=== PATIENT | female | born 1985 | race Caucasian/White ===

== ENCOUNTER 2020-09-04 15:48 | Outpatient (REF) | payer OTHER, SELFPAY ==
[2020-09-04 17:40] LABS: HCG Quantitative < 2 mIU/mL
== END 2020-09-04 15:49 | disposition home or self-care (01) ==
LOC: HO.LAB 15:48
PROVIDERS: PCP Internal Medicine; Visit Provider Advanced Practice Midwife
DX: O20.0 Threatened abortion (principal)
CPT/HCPCS: 84702

== ENCOUNTER 2020-09-05 12:04 | Outpatient (REF) | payer OTHER, SELFPAY ==
[2020-09-06 08:57] LABS: CT PCR NOT DETECTED (Not Detect.); NG PCR NOT DETECTED (Not Detect.)
[2020-09-06 22:41] LABS: CA-125 18 U/mL (<35)
== END 2020-09-05 12:05 | disposition home or self-care (01) ==
LOC: HO.LAB 12:04
PROVIDERS: Advanced Practice Midwife; PCP Internal Medicine; Visit Provider Obstetrics & Gynecology
DX: Z11.3 Encounter for screening for infections with a predominantly sexual mode of transmission (principal); O03.9 Complete or unspecified spontaneous abortion without complication; N83.291 Other ovarian cyst, right side
CPT/HCPCS: 86304; 87491; 87591; 99213

== ENCOUNTER 2020-09-06 11:35 | Outpatient (REF) | payer OTHER, SELFPAY | END 2020-09-06 11:36 | disposition home or self-care (01) | LOC: HO.LNP 11:35 | PROVIDERS: Visit Provider Obstetrics & Gynecology | DX: Z13.89 Encounter for screening for other disorder (principal) ==

== ENCOUNTER 2020-09-25 19:09 | Emergency (ER) | payer OTHER, SELFPAY ==
[2020-09-25 19:49] VITALS: BP 133/83; PULSE 89; RESP 16; TEMP 36.8; O2SAT 100; BMI 28.5
[2020-09-25 22:00] VITALS: BP 116/74; PULSE 104; RESP 15; O2SAT 99
--- NOTE | 2020-09-25 22:15 | ED_ITS ---
HPI - Abdominal Pain General Chief Complaint: Abdominal Pain Stated Complaint: Abd pain Time Seen by Provider: 09/25/20 21:58 Source: patient Mode of arrival: ambulatory Limitations: no limitations History of Present Illness HPI narrative: patient's history of ovarian cyst bilateral noticed pain in the right mid abdomen for last 4 days with no relation to movement or urination no nausea no vomiting no diarrhea no fever Related Data Home Medications Medication Instructions Recorded Confirmed vits [id number] fum 1 tab PO DAILY 09/05/20 27 mg iron-folic acid 800 mcg tablet Previous Rx's Medication Instructions Recorded dicyclomine 20 mg PO TID PRN #14 tab 09/25/20 Allergies Allergy/AdvReac Type Severity Reaction Status Date / Time latex [LATEX] Allergy Mild SWELLING Unverified 08/08/20 15:54 Review of Systems Review of Systems REVIEW OF SYSTEMS: Pertinent positives and negatives are stated above in the history. GEN: no fevers, chills, fatigue HEENT: no nasal congestion, sore throat, ear pain NEURO: no headache, dizziness, focal weakness PULM: no cough, shortness of breath CV: no chest pain, palpitations, LE edema ABD: no nausea, vomiting, diarrhea : no dysuria, urgency, frequency SKIN: no rash ROS otherwise negative x 10 Physical Exam Vital Signs: Vital Signs: Vital Signs Temp Pulse Resp BP Pulse Ox 09/25/20 22:00 104 H 15 116/74 99 09/25/20 19:49 98.3 F 89 16 133/83 100 Body Mass Index 28.5 Appearance: Alert. Oriented X3. No acute distress. Eyes: Pupils equal, round and reactive to light. ENT: Pharynx normal. Neck: Normal inspection. Neck supple. CVS: Normal heart rate and rhythm. Pulses normal. Respiratory: No respiratory distress. Breath sounds normal. Abdomen: Soft and mild tenderness right mid abdomen no rebound tenderness or guarding no CVA tenderness bowel sounds are present no mass palpable Skin: Skin warm and dry. Normal skin color. Normal skin turgor. Extremities: No lower extremity edema. Good range of movement Neuro: Oriented X 3. No motor deficit. No sensory deficit. Course Course Course Narrative: patient with nonspecific mild pain and abdomen without any nausea / vomiting likely nonspecific will discharge patient home patient urine is normal no blood in the urine or infection MDM - Abdominal Pain Medical Records Attestation: I reviewed the patient's medical records. Lab Data Attestation: I reviewed the patient's lab results. Labs: Lab Results 09/25/20 Range/Units 22:16 Urine Color YELLOW Urine Appearance CLEAR Urine pH 7.5 (5.0-8.0) Ur Specific [place] 1.020 (1.005-1.025) Urine Protein NEG (NEG-TRACE) MG/DL Urine Glucose (UA) NEG (NEG) MG/DL Urine Ketones NEG (NEG) MG/DL Urine Blood NEG (NEG) Urine Nitrite NEG (NEG) Ur Leukocyte Esterase NEG (NEG) Urine Test NEGATIVE (NEGATIVE) Discharge Plan Discharge Clinical Impression: Abdominal pain Qualifiers: Abdominal location: upper abdomen, unspecified Qualified Code(s): R10.10 - Upper abdominal pain, unspecified Patient Disposition: Home, Self-Care Instructions: Abdominal Pain (ED) Additional Instructions: drink plenty of fluids, dicyclomine as advised or pain. Report to the ER if pain gets worse/ vomiting /fever Prescriptions: New dicyclomine 20 mg tablet 20 mg PO TID PRN (Reason: abdominal pain) Qty: 14 RF: 0 No Action Vitamin 27 mg iron- 800 mcg tablet 1 tab PO DAILY RF: 0 Interventions: ED Discharge Assessment Last Done: 09/25/20 22:59 Discharge Date/Time: 09/25/20 23:01 [facility] Past Medical History Medical History Anxiety Constipation Depression Headache Ovarian cyst Family History Family History Father No problems noted. Mother Bipolar 1 disorder Son Depression Anxiety Maternal Grandmother Diabetes Maternal Grandfather Diabetes Paternal Grandfather Prostate cancer Colon cancer Paternal Uncle Prostate cancer Social History Social History Alcohol intake: never Smoking Status: Never smoker Advance Directives: No Sexual orientation: Straight/Heterosexual Gender identity: female
[2020-09-25 22:29] LABS: Appearance Urine CLEAR; Color Urine YELLOW; Glucose Urine UA NEG (NEG); Leukocyte Esterase Urine NEG (NEG); Nitrite Urine NEG (NEG); PH 7.5 (5.0-8.0); Urine Blood NEG (NEG); Urine Ketones NEG (NEG); Urine Protein NEG (NEG-TRACE)
[2020-09-25 22:33] LABS: UPreg QC Valid YES; Urine Pregnancy NEGATIVE (NEGATIVE)
== END 2020-09-25 23:01 | disposition home or self-care (01) ==
PROVIDERS: Emergency Provider Internal Medicine
DX: R10.10 Upper abdominal pain, unspecified (principal)
CPT/HCPCS: 81003; 81025; 99283; 99284

== ENCOUNTER 2020-10-01 15:09 | Outpatient (REF) | payer OTHER, SELFPAY ==
[2020-10-01 18:18] LABS: HCG Quantitative 95 mIU/mL
== END 2020-10-01 15:10 | disposition home or self-care (01) ==
LOC: HO.LAB 15:09
PROVIDERS: Absent Provider Obstetrics & Gynecology; Visit Provider Obstetrics & Gynecology
DX: O20.0 Threatened abortion (principal)
CPT/HCPCS: 84702; 99211

== ENCOUNTER 2020-10-03 15:36 | Outpatient (REF) | payer OTHER, SELFPAY ==
[2020-10-03 17:14] LABS: HCG Quantitative 337 mIU/mL
== END 2020-10-03 15:37 | disposition home or self-care (01) ==
LOC: HO.LAB 15:36
PROVIDERS: Visit Provider Obstetrics & Gynecology
DX: O20.0 Threatened abortion (principal)
CPT/HCPCS: 84702

== ENCOUNTER 2020-10-11 13:14 | Outpatient (REF) | payer OTHER, SELFPAY ==
--- NOTE | 2020-10-11 13:26 | US_ITS ---
EXAMINATION: OBSTETRICAL ULTRASOUND, FIRST TRIMESTER HISTORY: 34-year-old with on certain LMP Amenorrhea Recent first trimester miscarriages x2 LMP: Unknown COMPARISON: 08/19/2020 TECHNIQUE: Real time transabdominal imaging with color and M-mode Doppler. FINDINGS: An empty intrauterine gestational sac with a mean sac diameter of 0.76cm, consistent with 5 weeks 3 days of gestation is seen. A yoke sac is noted but no embryonic pole noted. A small endometrial lining cyst (0.2 x 0.2 x 0.3 cm) seen. Left ovary contains a known clear cyst measuring 6.6 x 4.2 x 5.3 cm. Right ovary measured 3.9 x 2.1 cm with a corpus luteal cyst measuring 2.1 x 2.1 x 2.1 cm. No free fluid in the cul-de-sac. GESTATIONAL AGE: 1. GA from LMP: N/A wks 2. GA from AUA: 5.3 wks ESTIMATED DATE OF DELIVERY: 1. STERLING from LMP: N/A 2. STERLING from AUA: 06/10/2021 US/US OB <= 14 weeks fetus IMPRESSION: An intrauterine gestational sac consistent with 5.3 weeks of gestation Normal-appearing yolk sac without an embryonic pole which can be consistent with the GA. An anechoic left ovarian cyst Discussion: I reviewed today's ultrasound findings and gave her reassurance. Although no embryonic pole is not visible, this can be consistent with the gestational age of less than 6 weeks. She denies vaginal bleeding or pelvic pain. Serial serum beta-hCG titer is recommended. A follow-up ultrasound has been scheduled in 2 weeks. Thank you very much for this referral. Majority of the visit was spent counseling and coordinating her care. Face to face time: 20 min.
== END 2020-10-11 13:15 | disposition home or self-care (01) ==
LOC: HO.US 13:14
PROVIDERS: PCP Internal Medicine; Visit Provider Obstetrics & Gynecology
DX: O20.0 Threatened abortion (principal)
CPT/HCPCS: 76801; 76817

== ENCOUNTER 2020-10-25 13:51 | Outpatient (REF) | payer OTHER, SELFPAY ==
--- NOTE | 2020-10-25 13:57 | US_ITS ---
EXAMINATION: OBSTETRICAL ULTRASOUND, FIRST TRIMESTER HISTORY: 35-year-old with uncertain LMP Viability LMP: Unknown COMPARISON: 10/11/2020 TECHNIQUE: Real time transabdominal imaging with color and M-mode Doppler. FINDINGS: A single, live IUP CRL of 1.0 mm c/w 7.1wks is noted. Heart Rate: 135 beats per minute. Right ovary contains a corpus luteal cyst measuring 2.2 x 2.5 x 2.3 cm. Compared to prior exam, this represents appropriate progression. The ovary itself measures 4.3 x 2.7 x 2.9 cm which is within normal range. Left ovary measures 6.5 x 5.3 x 6.1 cm. It contains a clear anechoic cyst measuring 6.5 x 5.2 x 4.9 cm. Compared to prior exam this is stable. GESTATIONAL AGE: 1. GA from LMP: 7.3 wks 2. GA from AUA: 7.1 wks ESTIMATED DATE OF DELIVERY: 1. STERLING from LMP: 06/10/2021 2. STERLING from AUA: 06/12/2021 US/US OB <= 14 weeks fetus IMPRESSION: 1. A single live IUP 2. CRL consistent with 7 weeks 1 day. This is in accordance with the her gestational age by ultrasound on 10/11/2020 at which time only a gestational sac was noted. The best STERLING is 06/10/2021. 3. The right ovary contains a corpus luteal cyst which is regressing. The left ovary contains a benign cyst at the is stable. Discussion: I reviewed today's ultrasound findings and informed her that her best STERLING seems to be 06/10/2021 based on the ultrasound on 10/11/2020. I reassured her that the cyst on the right ovary is a corpus luteal cyst and there is to be regressing. The anechoic cyst in the left ovary is stable and has benign appearance. We should follow-up at approximately every 6 weeks. A follow-up ultrasound at approximately 12 weeks for NT evaluation is recommended (not scheduled). Thank you very much for this referral. Majority of the visit was spent counseling and coordinating her care. Face to face time: 20 min.
[2020-10-25 15:35] LABS: Hematocrit 35.8 % (37-47); Hemoglobin 12.1 g/dl (12.0-16.0); Mean Corpuscular HGB Conc 33.8 g/dl (31.0-35.0); Mean Corpuscular Hemoglobin 31.6 pg (27.0-33.0); Mean Corpuscular Volume 93.5 fL (80-98); Mean Platelet Volume 10.6 fL (9.4-12.3); Platelet Count 230 X10*3/uL (160-400); Red Blood Count 3.83 X10*6/uL (4.20-5.50); Red Cell Distribution Width 11.7 % (11.0-16.0); White Blood Count 6.8 X10*3/uL (4.8-10.8)
== END 2020-10-25 13:52 | disposition home or self-care (01) ==
LOC: HO.US 13:51
PROVIDERS: Absent Provider Advanced Practice Midwife; PCP Internal Medicine; Visit Provider Obstetrics & Gynecology
DX: O20.0 Threatened abortion (principal); Z3A.14 14 weeks gestation of pregnancy
CPT/HCPCS: 36415; 76801; 84702; 85027

== ENCOUNTER → 2020-11-08 10:08 | Outpatient (BNVA) | payer OTHER, SELFPAY | PROVIDERS: PCP Internal Medicine; Visit Provider Advanced Practice Midwife | DX: Z34.90 Encounter for supervision of normal pregnancy, unspecified, unspecified trimester (principal) | CPT/HCPCS: 99212 ==

== ENCOUNTER 2020-11-26 10:57 | Outpatient (REF) | payer OTHER, SELFPAY ==
[2020-11-27 19:22] LABS: C. trachomatis RNA TMA NOT DETECTED (NOT DETECTED); N. gonorrhoeae RNA TMA NOT DETECTED (NOT DETECTED)
[2020-11-28 23:57] LABS: HPV mRNA E6/E7 rflx Not Detected (Not Detected)
== END 2020-11-26 10:58 | disposition home or self-care (01) ==
LOC: HO.LAB 10:57
PROVIDERS: PCP Internal Medicine; Visit Provider Advanced Practice Midwife
DX: Z34.90 Encounter for supervision of normal pregnancy, unspecified, unspecified trimester (principal)
CPT/HCPCS: 36415; 81003; 87491; 87591; 87624; 88142; 99212

== ENCOUNTER 2020-11-29 14:10 | Outpatient (REF) | payer OTHER, SELFPAY ==
--- NOTE | 2020-11-29 14:22 | US_ITS ---
EXAMINATION: OBSTETRICAL ULTRASOUND, FIRST TRIMESTER HISTORY: 35-year-old at 12.3 weeks of gestation NT screening COMPARISON: 10/25/2020 TECHNIQUE: Real time transabdominal imaging with color and M-mode Doppler. FINDINGS: A single, live IUP CRL of 55 mm c/w 12.1wks is noted. Heart Rate: 156 beats per minute. Normal yolk sac seen. NT was 1.4.mm. NB Present The embryo appears sonographically wnl for this GA. A 7 cm ovarian cyst was noted in left ovary. There is a benign appearance. Compared to prior exam, this cyst appears stable. GESTATIONAL AGE: 1. Established GA: 12.3 wks 2. GA from AUA: 12.1 wks ESTIMATED DATE OF DELIVERY: 1. Established STERLING: 06/10/2021 2. STERLING from AUA: 06/12/2021 US/US OB 1T nuc measure IMPRESSION: A single live IUP Size equals dates NT of 1.4 mm An anechoic left ovarian cyst. Minimal change compared to prior exam MFM Consultation: I reviewed the ultrasound findings along with significance of NT measurement. The NT of less than 3mm is generally reassuring. However, the sensitivity for T21 detection is only 60%. I reviewed the availability of serum aneuploidy screening which includes cell-free DNA and placental protein based tests. I discussed the sensitivity, false-positive rate, and other limitations associated with each test. I also reviewed the availability of invasive diagnostic tests that are associated small but definite risk of miscarriage. We also reviewed the differences between screening tests and diagnostic tests. After our discussion, she opted for the First trimester screening that is based on cell-free DNA or non-invasive testing (NIPT). The result will be faxed to your office in approximately 7 days. A follow up at 18 weeks for survey has been scheduled. Thank you very much for this referral. Total time 31 min (3, 17, 11).
[2020-11-29 15:59] LABS: MANUAL DIFF FLAG NO
[2020-11-29 16:08] LABS: Basophils Percent Auto 0.1 % (0-2); Eosinophils Absolute Auto 0.1 X10*3/uL (0.0-0.4); Eosinophils Percent Auto 0.8 % (0-4); Hematocrit 34.3 % (37-47); Hemoglobin 11.9 g/dl (12.0-16.0); Imm Gran Abs Auto 0.03 X10*3/uL (0.00-0.03); Imm Gran Pct Auto 0.4 % (0.0-0.4); Lymphocytes Absolute Auto 1.1 X10*3/uL (1.2-4.9); Lymphocytes Percent Auto 14.3 % (20-40); Mean Corpuscular HGB Conc 34.7 g/dl (31.0-35.0); Mean Corpuscular Hemoglobin 31.6 pg (27.0-33.0); Mean Corpuscular Volume 91.2 fL (80-98); Mean Platelet Volume 10.9 fL (9.4-12.3); Monocytes Absolute Auto 0.4 X10*3/uL (0.1-1.2); Monocytes Percent Auto 5.6 % (2-11); Neutrophils Absolute Auto 5.8 X10*3/uL (2.0-8.3); Neutrophils Percent Auto 78.8 % (45-73); Platelet Count 237 X10*3/uL (160-400); Red Blood Count 3.76 X10*6/uL (4.20-5.50); Red Cell Distribution Width 11.8 % (11.0-16.0); White Blood Count 7.3 X10*3/uL (4.8-10.8)
[2020-11-29 16:38] LABS: Syphilis Screen Nonreactive (Nonreactive)
[2020-11-29 16:48] LABS: Amphetamine Screen Urine Not Detected (Not Detect); Barbiturates, Urine Not Detected (Not Detect); Benzodiazepines Screen Urine Not Detected (Not Detect); Cannabinoid Screen Urine Not Detected (Not Detect); Cocaine Screen Urine Not Detected (Not Detect); Opiate Screen Urine Not Detected (Not Detect); Phencyclidine Screen Urine Not Detected (Not Detect)
[2020-12-01 01:52] LABS: Rubella IgG Antibody 1.95 Index
[2020-12-02 04:12] LABS: HIV AB/AG Nonreactive (Nonreactive); HIV Num 1 0.16 S/CO (0.00-0.99); ~HepC Num1 0.09 S/CO (0.00-0.79); ~Hepatitis C Antibody Nonreactive (Nonreactive)
[2020-12-02 04:23] LABS: HBsAGNum1 0.16 S/CO (0.00-0.99); Hepatitis B Surface Antigen Negative (Negative)
[2020-12-02 23:47] LABS: C. trachomatis RNA TMA NOT DETECTED (NOT DETECTED); N. gonorrhoeae RNA TMA NOT DETECTED (NOT DETECTED)
== END 2020-11-29 14:11 | disposition home or self-care (01) ==
LOC: HO.US 14:10
PROVIDERS: Visit Provider Advanced Practice Midwife
DX: O26.891 Other specified pregnancy related conditions, first trimester (principal); Z36.82 Encounter for antenatal screening for nuchal translucency; Z3A.12 12 weeks gestation of pregnancy
CPT/HCPCS: 76813; 80307; 85025; 86762; 86780; 86787; 86803; 86850; 86900; 86901; 87086; 87340; 87389; 87491; 87591

== ENCOUNTER → 2020-12-24 11:24 | Outpatient (BNVA) | payer OTHER, SELFPAY | PROVIDERS: Visit Provider Advanced Practice Midwife | DX: Z34.92 Encounter for supervision of normal pregnancy, unspecified, second trimester (principal) | CPT/HCPCS: 99212 ==

== ENCOUNTER 2021-01-10 13:04 | Outpatient (REF) | payer OTHER, SELFPAY ==
--- NOTE | ~2021-01-10 | US_ITS ---
EXAMINATION: US OBSTETRICAL CLINICAL INFORMATION: 35-year-old at 18.3 weeks of gestation Screening for anomaly COMPARISON: 11/29/2020 TECHNIQUE: Real-time transabdominal ultrasound was performed using C1-5 megahertz transducer. FINDINGS: A single, active, fetus is seen in breech presentation. The placenta is anterior without previa, and the amniotic fluid volume is wnl. MEASUREMENTS: 1. Biparietal Diameter: 3.9 cm; 18.0 wks 2. Occipital Frontal Diameter: 5.3 cm 3. Head Circumference: 15.3 cm; 18.3 wks 4. Abdominal Circumference: 12.5 cm; 18.1 wks 5. Femur Length: 2.8 cm; 18.4 wks 6. Humerus Length: 2.7 cm; 18.4 wks 7. Tibia Length: 2.3 cm; 18.0 wks 8. Ulna Length: 2.5 cm; 19.1 wks 9. Lateral ventricle: 0.36 cm 10. Cerebellum: 1.84 cm; 19.1 wks 11. Cisterna Magna: 0.36 cm 12. Nuchal Fold: 3.5 mm 13. Heart Rate: 135 beats per minute Rt ovary: normal Lt ovary: An anechoic cyst 5.9 x 5.2 x 6.1 cm, stable Cervical length 3.8 cm on T/A. GESTATIONAL AGE: 1. Established GA: 18.3 wks 2. GA from [facility]: 18.2 wks ESTIMATED DATE OF DELIVERY: 1. Established STERLING: 06/10/2021 2. STERLING from [facility]: 06/11/2021 ANATOMY: The visualized anatomy includes but not limited to: 1. Cranium: Normal 2. Intracranial anatomy: cavum septum pellucidi, lateral ventricles, choroid plexus, cerebellum, posterior fossa, third and fourth ventricles. 3. face: orbits, lip/palate, profile, nasal bone 4. Heart: four-chamber view of the heart, ventricular septum, foramen ovale, pulmonary vein, left and right outflow tracts, three-vessel view, 3 vessel trachea view, aortic and ductal arches, situs.. 5. Diaphragm: Normal 6. Abdominal wall: Normal 7. Cord Insertion: Normal 8. Spine: Cervical, thoracic, lumbar, sacral. 9. Stomach: Normal size and shape 10. Right Kidney: Normal 11. Left Kidney: Normal 12. 3 vessel cord: Normal 13. Upper extremity: Open hands, fifth digit. 14. Lower extremity: Tibia, fibula, bilateral feet. 15. Bladder: Normal 16. Genitalia: Male, patient aware US/US OB /maternal detail IMPRESSION: 1. Single, living, intrauterine with appropriate biometry. 2. Normal survey 3. Left ovarian cyst, anechoic. DISCUSSION: I reviewed today's ultrasound findings. We discussed the limitations of ultrasound in diagnosing aneuploidy and other congenital abnormalities. I reviewed the differences between screening test and diagnostic test. Amniocentesis was discussed and declined. She was informed that the baseline incidence of congenital abnormalities is approximately 3-5%. Not all these conditions are diagnosable in utero. Patient reports that she had known about the left ovarian cyst for approximately 6 years. RECOMMENDATIONS: 1. Follow-up when necessary Thank you for allowing me to participate in her care. Visiting time 30 minutes. Majority of this visit was spent reviewing and discussing her care.
== END 2021-01-10 13:05 | disposition home or self-care (01) ==
LOC: HO.US 13:04
PROVIDERS: Visit Provider Advanced Practice Midwife
DX: Z36.3 Encounter for antenatal screening for malformations (principal); Z34.92 Encounter for supervision of normal pregnancy, unspecified, second trimester; Z3A.18 18 weeks gestation of pregnancy
CPT/HCPCS: 76811

== ENCOUNTER → 2021-01-21 11:16 | Outpatient (BNVA) | payer OTHER, SELFPAY | PROVIDERS: PCP Internal Medicine; Visit Provider Advanced Practice Midwife | DX: Z13.89 Encounter for screening for other disorder (principal) | CPT/HCPCS: 99212 ==